=== PATIENT | female | born 1960 | race Caucasian/White ===

== ENCOUNTER 2021-04-10 01:09 | Inpatient (IN) | payer BC ==
[~2021-04-10] VITALS: Ht 162.6 cm; Wt 83.5 kg
[2021-04-10 01:34] LABS: BASO % 0 % (0-3); EOS % 0 % (0-3); HEMATOCRIT 39.9 % (36.0-47.0); HEMOGLOBIN 13.9 g/dL (12.0-15.5); LYMPH # 0.7 x10^3/uL (1.0-4.8); LYMPH % 13 % (24-48); MEAN CORPUSCULAR HEMOGLOBIN 30 pg (25-35); MEAN CORPUSCULAR HGB CONC 35 g/dL (31-37); MEAN CORPUSCULAR VOLUME 85 fL (79-100); MONO # 0.6 x10^3/uL (0.0-1.1); MONO % 11 % (0-9); NEUT # 4.5 x10^3/uL (1.8-7.7); NEUT % 76 % (31-73); PLATELET COUNT 266 x10^3/uL (140-400); RED BLOOD COUNT 4.72 x10^6/uL (3.50-5.40); RED CELL DISTRIBUTION WIDTH 13.5 % (11.5-14.5); WHITE BLOOD COUNT 5.9 x10^3/uL (4.0-11.0)
[2021-04-10 01:47] LABS: CALCIUM 8.4 mg/dL (8.5-10.1); CREATININE 0.9 mg/dL (0.6-1.0); GFR 63.2; POTASSIUM 3.5 mmol/L (3.5-5.1)
[2021-04-10 01:52] LABS: ALBUMIN 2.7 g/dL (3.4-5.0); ALBUMIN/GLOBULIN RATIO 0.6 (1.0-1.7); MAGNESIUM 2.1 mg/dL (1.8-2.4); TOTAL BILIRUBIN 1.2 mg/dL (0.2-1.0); TOTAL PROTEIN 7.1 g/dL (6.4-8.2)
--- NOTE | 2021-04-10 02:28 | RAD ---
Single view chest dated 04/10/2021 2:24 AM: COMPARISON: None Clinical Indication: Shortness of breath. Findings: Single upright portable exam of the chest was performed. Heart and mediastinal contours are within no rmal limits. There is patchy airspace disease at the peripheral aspects of the bilateral mid and lowe r lung zones. No pleural effusion. No pneumothorax. IMPRESSION: 1. Peripherally distributed airspace disease at the mid and lower lung zones, suspicious for pneumoni a. Covid 19 pneumonitis not excluded. Electronically signed by: Rosendo Palma MD (04/10/2021 2:25 AM) HEATH
--- NOTE | 2021-04-10 02:36 | PHYS DOC ---
Past Medical History Past Surgical History: Tubal ligation General Adult EDM: Chief Complaint: SHORTNESS OF BREATH HPI: HPI: Patient is a 61 year old female who was brought here by EMS from home due to trouble breathing and cough for 1 week. Patient's was tested positive for COVID-19, they live in the same house, he was not isolated. Patient denies any chest pain, no history of hypertension or diabetic. Patient said she is not a smoker. She is not on oxygen at home. EMS stated that her oxygen saturation was 87% on room air when they got to her. Patient is not vaccinated for COVID- 19 Review of Systems: Review of Systems: Constitutional: Denies fever or chills. [] Eyes: Denies change in visual acuity. [] HENT: Denies nasal congestion or sore throat. [] Respiratory: Positive for cough and shortness of breath. [] Cardiovascular: Denies chest pain or edema. [] GI: Denies abdominal pain, nausea, vomiting, bloody stools or diarrhea. [] : Denies dysuria. [] Musculoskeletal: Denies back pain or joint pain. [] Integument: Denies rash. [] Neurologic: Denies headache, focal weakness or sensory changes. [] Endocrine: Denies polyuria or polydipsia. [] Lymphatic: Denies swollen glands. [] Psychiatric: Denies depression or anxiety. [] Heart Score: C/O Chest Pain: N/A Risk Factors: Risk Factors: DM, Current or recent (<one month) smoker, HTN, HLP, family history of CAD, obesity. Risk Scores: Score 0 - 3: 2.5% MACE over next 6 weeks - Discharge Home Score 4 - 6: 20.3% MACE over next 6 weeks - Admit for Clinical Observation Score 7 - 10: 72.7% MACE over next 6 weeks - Early Invasive Strategies Current Medications: Current Medications Medications (Trade) Dose Ordered Sig/Jenna Start Time Stop Time Status Last Admin Dose Admin Dexamethasone Sodium Phosphate (Decadron) 10 mg 1X ONCE 04/10/21 02:45 04/10/21 02:46 UNV Physical Exam: PE: Constitutional: Well developed, well nourished, no acute distress, non-toxic appearance. [] HENT: Normocephalic, atraumatic, bilateral external ears normal, oropharynx moist, no oral exudates, nose normal. [] Eyes: PERRLA, EOMI, conjunctiva normal, no discharge. [] Neck: Normal range of motion, no tenderness, supple, no stridor. [] Cardiovascular:Heart rate regular rhythm, no murmur [] Lungs & Thorax: Bilateral breath sounds with crackles at lung bases, increased work of breathing. Abdomen: Bowel sounds normal, soft, no tenderness, no masses, no pulsatile masses. [] Skin: Warm, dry, no erythema, no rash. [] Back: No tenderness, no CVA tenderness. [] Extremities: No tenderness, no cyanosis, no clubbing, ROM intact, no edema. [] Neurologic: Alert and oriented X 3, normal motor function, normal sensory function, no focal deficits noted. [] Psychologic: Affect normal, judgement normal, mood normal. [] Current Patient Data: Labs: Laboratory Tests Test 04/10/21 01:19 White Blood Count 5.9 x10^3/uL (4.0-11.0) Red Blood Count 4.72 x10^6/uL (3.50-5.40) Hemoglobin 13.9 g/dL (12.0-15.5) Hematocrit 39.9 % (36.0-47.0) Mean Corpuscular Volume 85 fL (79-100) Mean Corpuscular Hemoglobin 30 pg (25-35) Mean Corpuscular Hemoglobin Concent 35 g/dL (31-37) Red Cell Distribution Width 13.5 % (11.5-14.5) Platelet Count 266 x10^3/uL (140-400) Neutrophils (%) (Auto) 76 % (31-73) H Lymphocytes (%) (Auto) 13 % (24-48) L Monocytes (%) (Auto) 11 % (0-9) H Eosinophils (%) (Auto) 0 % (0-3) Basophils (%) (Auto) 0 % (0-3) Neutrophils # (Auto) 4.5 x10^3/uL (1.8-7.7) Lymphocytes # (Auto) 0.7 x10^3/uL (1.0-4.8) L Monocytes # (Auto) 0.6 x10^3/uL (0.0-1.1) Eosinophils # (Auto) 0.0 x10^3/uL (0.0-0.7) Basophils # (Auto) 0.0 x10^3/uL (0.0-0.2) Sodium Level 137 mmol/L (136-145) Potassium Level 3.5 mmol/L (3.5-5.1) Chloride Level 99 mmol/L (98-107) Carbon Dioxide Level 30 mmol/L (21-32) Anion Gap 8 (6-14) Blood Urea Nitrogen 17 mg/dL (7-20) Creatinine 0.9 mg/dL (0.6-1.0) Estimated GFR (Cockcroft-Gault) 63.2 BUN/Creatinine Ratio 19 (6-20) Glucose Level 118 mg/dL (70-99) H Lactic Acid Level 1.6 mmol/L (0.4-2.0) Calcium Level 8.4 mg/dL (8.5-10.1) L Magnesium Level 2.1 mg/dL (1.8-2.4) Total Bilirubin 1.2 mg/dL (0.2-1.0) H Aspartate Amino Transferase (AST) 50 U/L (15-37) H Alanine Aminotransferase (ALT) 62 U/L (14-59) H Alkaline Phosphatase 80 U/L (46-116) Troponin I Quantitative < 0.017 ng/mL (0.000-0.055) JO-Paw-W-Type Natriuretic Peptide 257 pg/mL (0-124) H Total Protein 7.1 g/dL (6.4-8.2) Albumin 2.7 g/dL (3.4-5.0) L Albumin/Globulin Ratio 0.6 (1.0-1.7) L SARS-CoV-2 Antigen (Rapid) Negative (NEGATIVE) Laboratory Tests 04/10/21 01:19 Laboratory Tests 04/10/21 01:19 Vital Signs: Vital Signs Date Time Temp Pulse Resp B/P (MAP) Pulse Ox O2 Delivery O2 Flow Rate FiO2 04/10/21 01:17 74 26 138/67 (90) 92 Nasal Cannula 3.0 04/10/21 01:12 98.1 98.1 EKG: EKG: EKG was done at 132, heart rate 75 bpm, sinus rhythm, no ST segment elevation, right bundle branch block Radiology/Procedures: Radiology/Procedures: [facility] [address] [place] [address] IMAGING REPORT Signed PATIENT: ROBERT CABRAL ACCOUNT: [id number] : 1960 LOCATION: ER AGE: 61 SEX: F EXAM STATUS: REG ER ORD. PHYSICIAN: STAR SILVA DO REASON: soa PROCEDURE: CHEST AP ONLY Single view chest dated 04/10/2021 2:24 AM: COMPARISON: None Clinical Indication: Shortness of breath. Findings: Single upright portable exam of the chest was performed. Heart and mediastinal contours are within normal limits. There is patchy airspace disease at the peripheral aspects of the bilateral mid and lower lung zones. No pleural effusion. No pneumothorax. IMPRESSION: 1. Peripherally distributed airspace disease at the mid and lower lung zones, suspicious for pneumonia. Covid 19 pneumonitis not excluded. Electronically signed by: Rosendo Castro MD (04/10/2021 2:25 AM) [facility] [place] DICTATED and SIGNED BY: ROSENDO CASTRO MD DATE: 04/10/21 [id number] 0 Course & Med Decision Making: Course & Med Decision Making Pertinent Labs and Imaging studies reviewed. (See chart for details) Patient is a 61-year-old female who was brought here by EMS from home due to trouble breathing. Patient lives with her who is currently infected with COVID-19. Patient is highly to be infected with COVID-19 as well. Chest x-ray show bilateral groundglass infiltration consistent with COVID-19 infection. Her oxygen saturation is 87% on room air, patient will be admitted to hospital for further evaluation and treatment. Dragon Disclaimer: Dragon Disclaimer: This electronic medical record was generated, in whole or in part, using a voice recognition dictation system. Departure Departure Impression: Primary Impression: Pneumonia Additional Impressions: Hypoxia Person under investigation for COVID-19 Disposition: ADMITTED INPATIENT Admitting Physician: CARLITOS (Dr. Moya) Condition: STABLE Referrals: UNKNOWN PCP NAME (PCP) STAR SILVA DO Apr 10, 2021 02:36
[2021-04-10] MEDS ORDERED: DEXAMETHASONE SOD PHOS 4 MG/ML VIAL IVP ONE (02:45)
[2021-04-10] MEDS ORDERED: PIP/TAZO PER PHARMACY MC PRN (03:30)
[2021-04-10] MEDS ORDERED: PIPERACILLIN/TAZOBACTAM 3.375 GM in IV NORMAL SALINE 50ML 50 ML IV ONE (03:30)
[2021-04-10] MEDS ORDERED: ONDANSETRON PF 4 MG/2 ML VIAL. IVP PRN ×2 (03:30→06:45)
--- NOTE | 2021-04-10 04:07 | EKG ---
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
[2021-04-10] MEDS: IV NORMAL SALINE 1000ML BAG 1,000 ML IV SCH ×2 (05:14→16:50)
[2021-04-10] MEDS ORDERED: guaiFENesin/CODEINE 100mg/10mg 5 ML LIQUID PO PRN (06:15)
--- NOTE | 2021-04-10 06:19 | PDOC1 ---
History and Physical Date of Admission Date of Admission DATE: 04/10/21 TIME: 06:06 Identification/Chief Complaint Chief Complaint Shortness of breath Source Source: Patient History of Present Illness History of Present Illness Patient is a 61-year-old female with no stated past medical history presents to the ED with shortness of breath for the past week. She reports associated cough. Her is positive for COVID-19 at home, and patient states she has not been vaccinated against COVID-19. She reports associated nausea, vomiting, diarrhea, and loss of smell. Upon EMS arrival she was saturating 87% on room air. On arrival in the ED she was placed on 3 L nasal cannula with improvement in oxygen saturation. Labs on admission showed WBC 5.9, AST 50, ALT 62, BNP 257, albumin 2.7, troponin <0.017, and rapid COVID-19 was negative. Of note patient states she has 2 sons at home with similar exposure and negative rapid COVID-19 results. Chest x-ray showed peripherally distributed airspace disease at the mid and lower lung zones, suspicious for pneumonia or COVID-19 pneumonitis. She was treated with Zosyn and Decadron. Will admit patient for further medical management. Past Medical History Past Medical History Denies significant past medical history Past Surgical History Past Surgical History: Tubal Ligation Family History Family History: Diabetes Social History Smoke: No ALCOHOL: none Drugs: None Current Problem List Problem List Problems Medical Problems: (1) Hypoxia Status: Acute (2) Person under investigation for COVID-19 Status: Acute (3) Pneumonia Status: Acute Current Medications Current Medications Current Medications Dexamethasone Sodium Phosphate (Decadron) 10 mg 1X ONCE IVP Last administered on 04/10/21at 03:48; Start 04/10/21 at 02:45; Stop 04/10/21 at 03:23; Status DC Piperacillin Sod/ Tazobactam Sod 3.375 gm/Sodium Chloride 50 ml @ 100 mls/hr 1X ONCE IV Last administered on 04/10/21at 03:49; Start 04/10/21 at 03:30; Stop 04/10/21 at 03:59; Status DC Ondansetron HCl (Zofran) 4 mg PRN Q8HRS PRN IVP NAUSEA/VOMITING; Start 04/10/21 at 03:30; Stop 04/11/21 at 03:29 Sodium Chloride 1,000 ml @ 75 mls/hr [id number] IV Last administered on 04/10/21at 05:14; Start 04/10/21 at 03:30; Stop 04/11/21 at 03:29 Piperacillin Sod/ Tazobactam Sod (Zosyn Per Pharmacy) 1 each PRN DAILY PRN MC SEE COMMENTS; Start 04/10/21 at 03:30 Piperacillin Sod/ Tazobactam Sod 3.375 gm/Sodium Chloride 50 ml @ 100 mls/hr Q6HRS IV ; Start 04/10/21 at 12:00 Allergies Allergies: Coded Allergies: No Known Drug Allergies (Unverified , 04/10/21) ROS Review of System GENERAL: No history of weight change, weakness or fevers. SKIN: No bruising, hair changes or rashes. EYES: No blurred, double or loss of vision. NOSE AND THROAT: No history of nosebleeds, hoarseness or sore throat. HEART: Denies chest pain, denies palpitations. LUNGS: Shortness of breath, cough. Denies hemoptysis or wheezing. GASTROINTESTINAL: Nausea, vomiting, diarrhea, lower abdominal pain. GENITOURINARY: Denies dysuria, frequency, urgency, hematuria. NEUROLOGIC: Denies history of numbness, tingling, tremor or weakness. PSYCHIATRIC: Denies anxiety, denies depression. ENDOCRINE: No history of heat or cold intolerance, polyuria or polydipsia. EXTREMITIES: Denies muscle weakness, joint pain, pain on walking or stiffness. Physical Exam Physical Exam General: Alert, Oriented X3, Cooperative, mild distress HEENT: PERRLA, EOMI Lungs: No increased work of breathing, Normal air movement Heart: RRR, no murmurs Cardiovascular: S1, S2 Abdomen: Normal bowel sounds, Soft, No tenderness Extremities: No clubbing, No cyanosis Skin: No rashes, No significant lesion Neuro: Normal speech, Normal tone, Sensation intact Psych/Mental Status: Mental status NL, Mood NL Vitals Vitals Vital Signs Date Time Temp Pulse Resp B/P (MAP) Pulse Ox O2 Delivery O2 Flow Rate FiO2 04/10/21 04:00 70 27 131/66 (87) 98 Nasal Cannula 3.0 04/10/21 01:12 98.1 98.1 Labs Labs Laboratory Tests Test 10/3/21 01:19 White Blood Count 5.9 x10^3/uL (4.0-11.0) Red Blood Count 4.72 x10^6/uL (3.50-5.40) Hemoglobin 13.9 g/dL (12.0-15.5) Hematocrit 39.9 % (36.0-47.0) Mean Corpuscular Volume 85 fL (79-100) Mean Corpuscular Hemoglobin 30 pg (25-35) Mean Corpuscular Hemoglobin Concent 35 g/dL (31-37) Red Cell Distribution Width 13.5 % (11.5-14.5) Platelet Count 266 x10^3/uL (140-400) Neutrophils (%) (Auto) 76 % (31-73) Lymphocytes (%) (Auto) 13 % (24-48) Monocytes (%) (Auto) 11 % (0-9) Eosinophils (%) (Auto) 0 % (0-3) Basophils (%) (Auto) 0 % (0-3) Neutrophils # (Auto) 4.5 x10^3/uL (1.8-7.7) Lymphocytes # (Auto) 0.7 x10^3/uL (1.0-4.8) Monocytes # (Auto) 0.6 x10^3/uL (0.0-1.1) Eosinophils # (Auto) 0.0 x10^3/uL (0.0-0.7) Basophils # (Auto) 0.0 x10^3/uL (0.0-0.2) Sodium Level 137 mmol/L (136-145) Potassium Level 3.5 mmol/L (3.5-5.1) Chloride Level 99 mmol/L (98-107) Carbon Dioxide Level 30 mmol/L (21-32) Anion Gap 8 (6-14) Blood Urea Nitrogen 17 mg/dL (7-20) Creatinine 0.9 mg/dL (0.6-1.0) Estimated GFR (Cockcroft-Gault) 63.2 BUN/Creatinine Ratio 19 (6-20) Glucose Level 118 mg/dL (70-99) Lactic Acid Level 1.6 mmol/L (0.4-2.0) Calcium Level 8.4 mg/dL (8.5-10.1) Magnesium Level 2.1 mg/dL (1.8-2.4) Total Bilirubin 1.2 mg/dL (0.2-1.0) Aspartate Amino Transf (AST/SGOT) 50 U/L (15-37) Alanine Aminotransferase (ALT/SGPT) 62 U/L (14-59) Alkaline Phosphatase 80 U/L (46-116) Troponin I Quantitative < 0.017 ng/mL (0.000-0.055) WU-Wha-C-Type Natriuretic Peptide 257 pg/mL (0-124) Total Protein 7.1 g/dL (6.4-8.2) Albumin 2.7 g/dL (3.4-5.0) Albumin/Globulin Ratio 0.6 (1.0-1.7) SARS-CoV-2 Antigen (Rapid) Negative (NEGATIVE) Laboratory Tests Test 04/10/21 01:19 White Blood Count 5.9 x10^3/uL (4.0-11.0) Red Blood Count 4.72 x10^6/uL (3.50-5.40) Hemoglobin 13.9 g/dL (12.0-15.5) Hematocrit 39.9 % (36.0-47.0) Mean Corpuscular Volume 85 fL (79-100) Mean Corpuscular Hemoglobin 30 pg (25-35) Mean Corpuscular Hemoglobin Concent 35 g/dL (31-37) Red Cell Distribution Width 13.5 % (11.5-14.5) Platelet Count 266 x10^3/uL (140-400) Neutrophils (%) (Auto) 76 % (31-73) Lymphocytes (%) (Auto) 13 % (24-48) Monocytes (%) (Auto) 11 % (0-9) Eosinophils (%) (Auto) 0 % (0-3) Basophils (%) (Auto) 0 % (0-3) Neutrophils # (Auto) 4.5 x10^3/uL (1.8-7.7) Lymphocytes # (Auto) 0.7 x10^3/uL (1.0-4.8) Monocytes # (Auto) 0.6 x10^3/uL (0.0-1.1) Eosinophils # (Auto) 0.0 x10^3/uL (0.0-0.7) Basophils # (Auto) 0.0 x10^3/uL (0.0-0.2) Sodium Level 137 mmol/L (136-145) Potassium Level 3.5 mmol/L (3.5-5.1) Chloride Level 99 mmol/L (98-107) Carbon Dioxide Level 30 mmol/L (21-32) Anion Gap 8 (6-14) Blood Urea Nitrogen 17 mg/dL (7-20) Creatinine 0.9 mg/dL (0.6-1.0) Estimated GFR (Cockcroft-Gault) 63.2 BUN/Creatinine Ratio 19 (6-20) Glucose Level 118 mg/dL (70-99) Lactic Acid Level 1.6 mmol/L (0.4-2.0) Calcium Level 8.4 mg/dL (8.5-10.1) Magnesium Level 2.1 mg/dL (1.8-2.4) Total Bilirubin 1.2 mg/dL (0.2-1.0) Aspartate Amino Transf (AST/SGOT) 50 U/L (15-37) Alanine Aminotransferase (ALT/SGPT) 62 U/L (14-59) Alkaline Phosphatase 80 U/L (46-116) Troponin I Quantitative < 0.017 ng/mL (0.000-0.055) ID-Izv-S-Type Natriuretic Peptide 257 pg/mL (0-124) Total Protein 7.1 g/dL (6.4-8.2) Albumin 2.7 g/dL (3.4-5.0) Albumin/Globulin Ratio 0.6 (1.0-1.7) SARS-CoV-2 Antigen (Rapid) Negative (NEGATIVE) Images Images PATIENT: ROBERT CABRAL ACCOUNT: [id number] : 1960 LOCATION: ER AGE: 61 SEX: F EXAM STATUS: REG ER ORD. PHYSICIAN: STAR SILVA DO REASON: soa PROCEDURE: CHEST AP ONLY Single view chest dated 04/10/2021 2:24 AM: COMPARISON: None Clinical Indication: Shortness of breath. Findings: Single upright portable exam of the chest was performed. Heart and mediastinal contours are within normal limits. There is patchy airspace disease at the peripheral aspects of the bilateral mid and lower lung zones. No pleural effusion. No pneumothorax. IMPRESSION: 1. Peripherally distributed airspace disease at the mid and lower lung zones, suspicious for pneumonia. Covid 19 pneumonitis not excluded. VTE Prophylaxis Ordered VTE Prophylaxis Devices: No VTE Pharmacological Prophylaxi: Yes Assessment/Plan Assessment/Plan Acute respiratory failure hypoxia COVID-19 pneumonia vs CAP COVID-19 PUI Plan: Rapid COVID-19 was negative in the ED, however due to risk factors of positive exposure at home will treat empirically until COVID-19 PCR results. Continue empiric antibiotics, Zosyn. Decadron 6 mg daily Once COVID-19 PCR result positive, will initiate remdesivir. We will obtain CRP, LDH, ferritin, D-dimer. Provide supportive care, zinc, vitamin C. FEN - Cardiac diet PPX - Lovenox FULL CODE Dispo - inpatient for above Patient names her (Andi Cabral) as surrogate decision-maker Justifications for Admission Other Justification LOI GARZA MD Apr 10, 2021 06:18
[2021-04-10] MEDS ORDERED: CALCIUM CARBONATE 500 MG TAB.CHEW PO PRN (06:45)
[2021-04-10] MEDS ORDERED: MAGNESIUM HYDROXIDE 2,400 MG/30 ML ORAL.SUSP. PO PRN (06:45)
[2021-04-10] MEDS ORDERED: ZOLPIDEM 5 MG TABLET. PO PRN (06:45)
[2021-04-10] MEDS ORDERED: ACETAMINOPHEN 325 MG TABLET. PO PRN (06:45)
[2021-04-10] MEDS ORDERED: MAG HYDROX/ALUMINUM HYD/SIMETH 30 ML ORAL.SUSP PO PRN (06:45)
[2021-04-10 07:00] VITALS: BP 126/67
[2021-04-10 09:14] LABS: C-REACTIVE PROTEIN 84.7 mg/L (0-3.3)
[2021-04-10] MEDS: LACTOBACILLUS RHAMNOSUS GG 1 CAPSULE. PO SCH ×2 (10:01→21:01)
[2021-04-10] MEDS: ZINC SULFATE 220 MG CAPSULE. PO SCH (10:02)
[2021-04-10] MEDS: ENOXAPARIN 40 MG/0.4 ML SYRINGE. SQ SCH (10:02)
[2021-04-10] MEDS: ASCORBIC ACID 500 MG TABLET PO SCH ×2 (10:02→21:00)
[2021-04-10 11:00] VITALS: BP 144/70
[2021-04-10] MEDS: PIPERACILLIN/TAZOBACTAM 3.375 GM in IV NORMAL SALINE 50ML 50 ML IV SCH ×3 (13:19→23:01)
[2021-04-10 15:00] VITALS: BP 134/60
[2021-04-10 19:00] VITALS: BP 140/74
[2021-04-10] MEDS: HYDROcodone/APAP 5/325MG 1 TAB TABLET PO PRN (21:00)
[2021-04-10 22:55] VITALS: BP 143/72
[2021-04-11 02:21] VITALS: BP 135/72
[2021-04-11 03:08] LABS: HEMOGLOBIN A1C 6.1 % (4.8-5.6)
[2021-04-11] MEDS: PIPERACILLIN/TAZOBACTAM 3.375 GM in IV NORMAL SALINE 50ML 50 ML IV SCH (04:52)
[2021-04-11 07:00] VITALS: BP 151/77
[2021-04-11 08:36] LABS: ALBUMIN 2.4 g/dL (3.4-5.0); CALCIUM 8.4 mg/dL (8.5-10.1); CREATININE 0.9 mg/dL (0.6-1.0); DIRECT BILIRUBIN 0.4 mg/dL (0.0-0.2); GFR 63.2; POTASSIUM 3.9 mmol/L (3.5-5.1); TOTAL PROTEIN 6.5 g/dL (6.4-8.2)
[2021-04-11 08:53] LABS: BASO % 0 % (0-3); EOS % 0 % (0-3); HEMATOCRIT 37.5 % (36.0-47.0); HEMOGLOBIN 12.7 g/dL (12.0-15.5); LYMPH # 1.3 x10^3/uL (1.0-4.8); LYMPH % 18 % (24-48); MEAN CORPUSCULAR HEMOGLOBIN 29 pg (25-35); MEAN CORPUSCULAR HGB CONC 34 g/dL (31-37); MEAN CORPUSCULAR VOLUME 87 fL (79-100); MONO # 1.2 x10^3/uL (0.0-1.1); MONO % 17 % (0-9); NEUT # 4.5 x10^3/uL (1.8-7.7); NEUT % 64 % (31-73); PLATELET COUNT 318 x10^3/uL (140-400); RED BLOOD COUNT 4.32 x10^6/uL (3.50-5.40); RED CELL DISTRIBUTION WIDTH 13.6 % (11.5-14.5); WHITE BLOOD COUNT 7.1 x10^3/uL (4.0-11.0)
--- NOTE | 2021-04-11 09:15 | PDOC ---
PULMONARY PROGRESS NOTES DATE: 04/11/21 TIME: 09:15 Vitals Vital Signs Date Time Temp Pulse Resp B/P (MAP) Pulse Ox O2 Delivery O2 Flow Rate FiO2 04/11/21 07:00 98.0 61 20 151/77 (101) 96 Nasal Cannula 3.0 98.0 Labs Laboratory Tests Test 04/10/21 01:19 04/10/21 08:20 04/11/21 07:45 White Blood Count 5.9 x10^3/uL (4.0-11.0) 7.1 x10^3/uL (4.0-11.0) Red Blood Count 4.72 x10^6/uL (3.50-5.40) 4.32 x10^6/uL (3.50-5.40) Hemoglobin 13.9 g/dL (12.0-15.5) 12.7 g/dL (12.0-15.5) Hematocrit 39.9 % (36.0-47.0) 37.5 % (36.0-47.0) Mean Corpuscular Volume 85 fL (79-100) 87 fL (79-100) Mean Corpuscular Hemoglobin 30 pg (25-35) 29 pg (25-35) Mean Corpuscular Hemoglobin Concent 35 g/dL (31-37) 34 g/dL (31-37) Red Cell Distribution Width 13.5 % (11.5-14.5) 13.6 % (11.5-14.5) Platelet Count 266 x10^3/uL (140-400) 318 x10^3/uL (140-400) Neutrophils (%) (Auto) 76 % (31-73) 64 % (31-73) Lymphocytes (%) (Auto) 13 % (24-48) 18 % (24-48) Monocytes (%) (Auto) 11 % (0-9) 17 % (0-9) Eosinophils (%) (Auto) 0 % (0-3) 0 % (0-3) Basophils (%) (Auto) 0 % (0-3) 0 % (0-3) Neutrophils # (Auto) 4.5 x10^3/uL (1.8-7.7) 4.5 x10^3/uL (1.8-7.7) Lymphocytes # (Auto) 0.7 x10^3/uL (1.0-4.8) 1.3 x10^3/uL (1.0-4.8) Monocytes # (Auto) 0.6 x10^3/uL (0.0-1.1) 1.2 x10^3/uL (0.0-1.1) Eosinophils # (Auto) 0.0 x10^3/uL (0.0-0.7) 0.0 x10^3/uL (0.0-0.7) Basophils # (Auto) 0.0 x10^3/uL (0.0-0.2) 0.0 x10^3/uL (0.0-0.2) Sodium Level 137 mmol/L (136-145) 141 mmol/L (136-145) Potassium Level 3.5 mmol/L (3.5-5.1) 3.9 mmol/L (3.5-5.1) Chloride Level 99 mmol/L (98-107) 105 mmol/L (98-107) Carbon Dioxide Level 30 mmol/L (21-32) 28 mmol/L (21-32) Anion Gap 8 (6-14) 8 (6-14) Blood Urea Nitrogen 17 mg/dL (7-20) 15 mg/dL (7-20) Creatinine 0.9 mg/dL (0.6-1.0) 0.9 mg/dL (0.6-1.0) Estimated GFR (Cockcroft-Gault) 63.2 63.2 BUN/Creatinine Ratio 19 (6-20) Glucose Level 118 mg/dL (70-99) 91 mg/dL (70-99) Hemoglobin A1c 6.1 % (4.8-5.6) Lactic Acid Level 1.6 mmol/L (0.4-2.0) Calcium Level 8.4 mg/dL (8.5-10.1) 8.4 mg/dL (8.5-10.1) Magnesium Level 2.1 mg/dL (1.8-2.4) Ferritin 2189 ng/mL (8-252) Total Bilirubin 1.2 mg/dL (0.2-1.0) 1.0 mg/dL (0.2-1.0) Aspartate Amino Transf (AST/SGOT) 50 U/L (15-37) 53 U/L (15-37) Alanine Aminotransferase (ALT/SGPT) 62 U/L (14-59) 57 U/L (14-59) Alkaline Phosphatase 80 U/L (46-116) 69 U/L (46-116) Lactate Dehydrogenase 434 U/L (81-234) Troponin I Quantitative < 0.017 ng/mL (0.000-0.055) C-Reactive Protein, Quantitative 84.7 mg/L (0-3.3) MB-Ztj-V-Type Natriuretic Peptide 257 pg/mL (0-124) Total Protein 7.1 g/dL (6.4-8.2) 6.5 g/dL (6.4-8.2) Albumin 2.7 g/dL (3.4-5.0) 2.4 g/dL (3.4-5.0) Albumin/Globulin Ratio 0.6 (1.0-1.7) SARS-CoV-2 Antigen (Rapid) Negative (NEGATIVE) D-Dimer (Izabel) 1.45 ug/mlFEU (0.00-0.50) Direct Bilirubin 0.4 mg/dL (0.0-0.2) Laboratory Tests Test 04/11/21 07:45 White Blood Count 7.1 x10^3/uL (4.0-11.0) Red Blood Count 4.32 x10^6/uL (3.50-5.40) Hemoglobin 12.7 g/dL (12.0-15.5) Hematocrit 37.5 % (36.0-47.0) Mean Corpuscular Volume 87 fL (79-100) Mean Corpuscular Hemoglobin 29 pg (25-35) Mean Corpuscular Hemoglobin Concent 34 g/dL (31-37) Red Cell Distribution Width 13.6 % (11.5-14.5) Platelet Count 318 x10^3/uL (140-400) Neutrophils (%) (Auto) 64 % (31-73) Lymphocytes (%) (Auto) 18 % (24-48) Monocytes (%) (Auto) 17 % (0-9) Eosinophils (%) (Auto) 0 % (0-3) Basophils (%) (Auto) 0 % (0-3) Neutrophils # (Auto) 4.5 x10^3/uL (1.8-7.7) Lymphocytes # (Auto) 1.3 x10^3/uL (1.0-4.8) Monocytes # (Auto) 1.2 x10^3/uL (0.0-1.1) Eosinophils # (Auto) 0.0 x10^3/uL (0.0-0.7) Basophils # (Auto) 0.0 x10^3/uL (0.0-0.2) Sodium Level 141 mmol/L (136-145) Potassium Level 3.9 mmol/L (3.5-5.1) Chloride Level 105 mmol/L (98-107) Carbon Dioxide Level 28 mmol/L (21-32) Anion Gap 8 (6-14) Blood Urea Nitrogen 15 mg/dL (7-20) Creatinine 0.9 mg/dL (0.6-1.0) Estimated GFR (Cockcroft-Gault) 63.2 Glucose Level 91 mg/dL (70-99) Calcium Level 8.4 mg/dL (8.5-10.1) Total Bilirubin 1.0 mg/dL (0.2-1.0) Direct Bilirubin 0.4 mg/dL (0.0-0.2) Aspartate Amino Transf (AST/SGOT) 53 U/L (15-37) Alanine Aminotransferase (ALT/SGPT) 57 U/L (14-59) Alkaline Phosphatase 69 U/L (46-116) Total Protein 6.5 g/dL (6.4-8.2) Albumin 2.4 g/dL (3.4-5.0) Medications Active Scripts Medications Dose Route/Sig Max Daily Dose Days Date Category No Known Medications Prior To Admisstion (Info) Each 1 Each 1X 04/10/21 Reported Impression . POSSIBLE COVID REPEAT TEST PCR SEE ORDERS RULE OUT LIYA GUALLPA MD Apr 11, 2021 09:15
[2021-04-11] MEDS: LACTOBACILLUS RHAMNOSUS GG 1 CAPSULE. PO SCH ×2 (09:46→20:30)
[2021-04-11] MEDS: ZINC SULFATE 220 MG CAPSULE. PO SCH (09:46)
[2021-04-11] MEDS: ASCORBIC ACID 500 MG TABLET PO SCH ×2 (09:46→20:30)
[2021-04-11] MEDS: DEXAMETHASONE SOD PHOS 4 MG/ML VIAL IVP SCH (09:46)
[2021-04-11] MEDS: ENOXAPARIN 40 MG/0.4 ML SYRINGE. SQ SCH (09:47)
[2021-04-11 11:00] VITALS: BP 143/77
[2021-04-11] MEDS ORDERED: IOHEXOL 350 MG/ML 100 ML VIAL. IV ONE (12:15)
[2021-04-11] MEDS ORDERED: CONTRAST GIVEN. MC PRN (12:30)
--- NOTE | 2021-04-11 12:30 | CONS ---
DATE OF CONSULTATION: 04/11/2021 ATTENDING PHYSICIAN: Mode Milligan MD REASON FOR CONSULTATION: The patient is seen in pulmonary consultation at the request of Dr. Milligan for possible COVID, abnormal x-ray. HISTORY OF PRESENT ILLNESS: The patient is a 61-year-old that was brought in by EMS from home due to trouble breathing. She has been sick at home for approximately 1 week. Her tested positive. He was not isolating himself from the . The patient presented, had saturations on room air of 87%. Chest x-ray reveals some airspace disease in the right mid and lower zones. I was asked to see her in consultation. The patient is currently on 3 liters of oxygen. She has never had any pulmonary issues. PAST MEDICAL HISTORY: Otherwise unremarkable. PAST SURGICAL HISTORY: Tubal ligation. FAMILY HISTORY: Diabetes. SOCIAL HISTORY: She has never smoked. CURRENT MEDICATIONS: List was reviewed. ALLERGIES: No known drug allergies. REVIEW OF SYSTEMS: As indicated above, otherwise a 10-point system was reviewed and negative. PHYSICAL EXAMINATION: VITAL SIGNS: Stable. O2 saturation was greater than 92%. GENERAL: The patient is seen during the COVID-19 pandemic on visual inspection, she was in no respiratory distress. No paroxysmal breathing pattern. No accessory muscles being used. There are no rashes. LABORATORY DATA: Reviewed. White count was normal, hemoglobin and hematocrit were noted. [id number] BEATRICE was negative. The rapid test was negative. Electrolytes were noted. D-dimer was elevated at 1.45. IMPRESSION: 1. Abnormal x-ray, compatible with suspected COVID-19. 2. COVID-19 exposure. 3. Acute respiratory failure secondary to above. 4. Abnormal x-ray. 5. Negative testing for TUPV-OWVNA-0 including rapid test and nucleic amplification test. PLAN: 1. We will continue empiric antibiotics. 2. Obtain PCR for COVID. 3. Continue isolation. 4. Oxygen supplementation. 5. Continue dexamethasone. 6. DVT prophylaxis. 7. Rule out PE. I do appreciate the privilege in sharing in this patient's care. BARRON LYMAN: Liu TID: [id number]
--- NOTE | 2021-04-11 13:44 | PDOC ---
[employer] PROGRESS NOTE Date of Service DOS: DATE: 04/11/21 TIME: 13:43 Chief Complaint Chief Complaint Shortness of breath History of Present Illness History of Present Illness Patient is a 61-year-old female with no stated past medical history presents to the ED with shortness of breath for the past week. She reports associated cough. Her is positive for COVID-19 at home, and patient states she has not been vaccinated against COVID-19. She reports associated nausea, vomiting, diarrhea, and loss of smell. Upon EMS arrival she was saturating 87% on room air. On arrival in the ED she was placed on 3 L nasal cannula with improvement in oxygen saturation. Labs on admission showed WBC 5.9, AST 50, ALT 62, BNP 257, albumin 2.7, troponin <0.017, and rapid COVID-19 was negative. Of note patient states she has 2 sons at home with similar exposure and negative rapid COVID-19 results. Chest x-ray showed peripherally distributed airspace disease at the mid and lower lung zones, suspicious for pneumonia or COVID-19 pneu monitis. She was treated with Zosyn and Decadron. Will admit patient for further medical management. 04/11 Patient evaluated at bedside on nasal cannula. She said her breathing was feeling quite a bit better already although not near her baseline. Inte restingly Covid PCR negative despite close contact with PCR positive . Will ask pulmonary team the benefit of retesting. Otherwise continuing antibiotics and steroids. Plan of care discussed with bedside RN. Vitals/I&O Vitals/I&O: Vital Signs Date Time Temp Pulse Resp B/P (MAP) Pulse Ox O2 Delivery O2 Flow Rate FiO2 04/11/21 11:00 98.2 58 20 143/77 (99) 93 Nasal Cannula 3.0 98.2 I & O 04/10/21 04/10/21 04/11/21 15:00 23:00 07:00 Intake Total 680 ml 400 ml 120 ml Balance 680 ml 400 ml 120 ml Physical Exam General: Alert, Oriented X3, Cooperative Heart: Regular rate, Normal S1, Normal S2 Lungs: Other (Decreased throughout) Abdomen: Normal bowel sounds, Soft, No tenderness Extremities: No edema, Normal pulses Skin: No significant lesion Labs Labs: Laboratory Tests Test 04/11/21 07:45 White Blood Count 7.1 x10^3/uL (4.0-11.0) Red Blood Count 4.32 x10^6/uL (3.50-5.40) Hemoglobin 12.7 g/dL (12.0-15.5) Hematocrit 37.5 % (36.0-47.0) Mean Corpuscular Volume 87 fL (79-100) Mean Corpuscular Hemoglobin 29 pg (25-35) Mean Corpuscular Hemoglobin Concent 34 g/dL (31-37) Red Cell Distribution Width 13.6 % (11.5-14.5) Platelet Count 318 x10^3/uL (140-400) Neutrophils (%) (Auto) 64 % (31-73) Lymphocytes (%) (Auto) 18 % (24-48) Monocytes (%) (Auto) 17 % (0-9) Eosinophils (%) (Auto) 0 % (0-3) Basophils (%) (Auto) 0 % (0-3) Neutrophils # (Auto) 4.5 x10^3/uL (1.8-7.7) Lymphocytes # (Auto) 1.3 x10^3/uL (1.0-4.8) Monocytes # (Auto) 1.2 x10^3/uL (0.0-1.1) Eosinophils # (Auto) 0.0 x10^3/uL (0.0-0.7) Basophils # (Auto) 0.0 x10^3/uL (0.0-0.2) Sodium Level 141 mmol/L (136-145) Potassium Level 3.9 mmol/L (3.5-5.1) Chloride Level 105 mmol/L (98-107) Carbon Dioxide Level 28 mmol/L (21-32) Anion Gap 8 (6-14) Blood Urea Nitrogen 15 mg/dL (7-20) Creatinine 0.9 mg/dL (0.6-1.0) Estimated GFR (Cockcroft-Gault) 63.2 Glucose Level 91 mg/dL (70-99) Calcium Level 8.4 mg/dL (8.5-10.1) Total Bilirubin 1.0 mg/dL (0.2-1.0) Direct Bilirubin 0.4 mg/dL (0.0-0.2) Aspartate Amino Transf (AST/SGOT) 53 U/L (15-37) Alanine Aminotransferase (ALT/SGPT) 57 U/L (14-59) Alkaline Phosphatase 69 U/L (46-116) Total Protein 6.5 g/dL (6.4-8.2) Albumin 2.4 g/dL (3.4-5.0) Review of Systems Review of Systems: Negative unless above Assessment and Plan Assessmemt and Plan Assessment/Plan Acute respiratory failure hypoxia COVID-19 pneumonia vs CAP COVID-19 PUI Plan: Rapid COVID-19 was negative in the ED, however due to risk factors of positive exposure at home will treat empirically until COVID-19 PCR results; Covid PCR subsequently negative but due to high risk and close Covid contacts we will re peat Continue empiric antibiotics, Zosyn. Decadron 6 mg daily If Covid positive start remdesivir Provide supportive [facility] meds resumed as indicated FEN - Cardiac diet PPX - Lovenox FULL CODE Dispo - inpatient for above Patient names her (Andi Miller) as surrogate decision-make Comment Review of Relevant I have reviewed the following items shandra (where applicable) has been applied. Medications: Current Medications Medications (Trade) Dose Ordered Sig/Jenna Route PRN Reason Start Time Stop Time Status Last Admin Dose Admin Dexamethasone Sodium Phosphate (Decadron) 6 mg DAILY IVP 04/11/21 09:00 04/11/21 09:46 Justifications for Admission General Conditions Other justification for admit: Acute respiratory failure, COVID-19 PUI Other Justification PRATIMA MOON MD Apr 11, 2021 13:44
--- NOTE | 2021-04-11 13:47 | RAD ---
EXAMINATION: CTA Chest With IV contrast INDICATION:61 years, Female, shortness of breath. COMPARISON: None. TECHNIQUE: Spiral CTA was obtained from the jugular notch through the posterior costophrenic recess. 3-D MIPS, sagittal and coronal reformats were obtained. Exposure: One or more of the following individualized dose reduction techniques were utilized for thi s examination: 1. Automated exposure control 2. Adjustment of the mA and/or kV according to patient size 3. Use of iterative reconstruction technique. FINDINGS: LUNGS/PLEURA: Central airways are patent. Multifocal bilateral consolidative and groundglass opacitie s. No pleural effusion or pneumothorax. No suspicious pulmonary nodule.. MEDIASTINUM: Multiple prominent to mildly enlarged mediastinal and hilar lymph nodes, the largest in the right paratracheal region measures 1.4 cm in short axis, likely reactive. The thoracic aorta and pulmonary arteries are normal in caliber. No evidence of pulmonary embolism. The heart is normal in s ize. No pericardial effusion. No detectable calcified coronary atherosclerosis. The visualized thyroi d and the esophagus are unremarkable. AXILLA/SOFT TISSUE: No supraclavicular or axillary adenopathy. Regional soft tissues are within tram l limits. UPPER ABDOMEN: Small hiatal hernia. Hepatic steatosis. Possible calcified cholelithiasis seen. Indete rminate 1.5 cm left adrenal nodule. BONES: No evidence of acute fractures or aggressive osseous lesions. Mild multilevel degenerative kari nges in the spine. IMPRESSION: 1. No evidence of pulmonary embolism. 2. Multifocal bilateral consolidative and groundglass opacities, highly suspicious for COVID 19 pneum onia. 3. Indeterminate 1.5 cm left adrenal nodule. With no personal history of primary malignancy, findings statistically representing benign adenoma. Consider further evaluation with dedicated CT adrenal pro tocol, as warranted. 4. Hepatic steatosis. Electronically signed by: Chrissie Arciniega MD (04/11/2021 1:44 PM) [facility]
[2021-04-11] MEDS: DOXYCYCLINE HYCLATE 100 MG TABLET PO SCH ×2 (14:44→20:30)
[2021-04-11 15:00] VITALS: BP 150/77
[2021-04-11 19:00] VITALS: BP 145/71
[2021-04-11] MEDS: HYDROcodone/APAP 5/325MG 1 TAB TABLET PO PRN (20:30)
[2021-04-11 22:45] VITALS: BP 142/69
[2021-04-12 02:42] VITALS: BP 148/72
[2021-04-12 07:00] VITALS: BP 152/72
[2021-04-12 07:12] LABS: BASO % 0 % (0-3); EOS # 0.1 x10^3/uL (0.0-0.7); EOS % 1 % (0-3); HEMATOCRIT 37.5 % (36.0-47.0); HEMOGLOBIN 12.9 g/dL (12.0-15.5); LYMPH # 1.9 x10^3/uL (1.0-4.8); LYMPH % 24 % (24-48); MEAN CORPUSCULAR HEMOGLOBIN 30 pg (25-35); MEAN CORPUSCULAR HGB CONC 34 g/dL (31-37); MEAN CORPUSCULAR VOLUME 86 fL (79-100); MONO # 1.2 x10^3/uL (0.0-1.1); MONO % 16 % (0-9); NEUT # 4.6 x10^3/uL (1.8-7.7); NEUT % 59 % (31-73); PLATELET COUNT 358 x10^3/uL (140-400); RED BLOOD COUNT 4.37 x10^6/uL (3.50-5.40); RED CELL DISTRIBUTION WIDTH 13.7 % (11.5-14.5); WHITE BLOOD COUNT 7.7 x10^3/uL (4.0-11.0)
[2021-04-12] MEDS: ZINC SULFATE 220 MG CAPSULE. PO SCH (08:35)
[2021-04-12] MEDS: ENOXAPARIN 40 MG/0.4 ML SYRINGE. SQ SCH (08:36)
[2021-04-12] MEDS: DOXYCYCLINE HYCLATE 100 MG TABLET PO SCH ×2 (08:36→20:34)
[2021-04-12] MEDS: LACTOBACILLUS RHAMNOSUS GG 1 CAPSULE. PO SCH ×2 (08:36→20:34)
[2021-04-12] MEDS: ASCORBIC ACID 500 MG TABLET PO SCH ×2 (08:36→20:34)
[2021-04-12] MEDS: DEXAMETHASONE SOD PHOS 4 MG/ML VIAL IVP SCH (08:37)
--- NOTE | 2021-04-12 08:49 | PDOC ---
PULMONARY PROGRESS NOTES DATE: 04/12/21 TIME: 08:49 Subjective Patient does not feel worse, currently on 3 L. Vitals Vital Signs Date Time Temp Pulse Resp B/P (MAP) Pulse Ox O2 Delivery O2 Flow Rate FiO2 04/12/21 07:00 97.6 53 18 152/72 (98) 92 Nasal Cannula 3.0 97.6 ROS: No Nausea, No Chest Pain, No Abdominal Pain, No Increase Cough General: Alert Lungs: Crackles Cardiovascular: S1, S2 Abdomen: Soft Neuro Exam: Alert Extremities: No Edema Skin: Warm Labs Laboratory Tests Test 04/11/21 07:45 04/12/21 06:30 White Blood Count 7.1 x10^3/uL (4.0-11.0) 7.7 x10^3/uL (4.0-11.0) Red Blood Count 4.32 x10^6/uL (3.50-5.40) 4.37 x10^6/uL (3.50-5.40) Hemoglobin 12.7 g/dL (12.0-15.5) 12.9 g/dL (12.0-15.5) Hematocrit 37.5 % (36.0-47.0) 37.5 % (36.0-47.0) Mean Corpuscular Volume 87 fL (79-100) 86 fL (79-100) Mean Corpuscular Hemoglobin 29 pg (25-35) 30 pg (25-35) Mean Corpuscular Hemoglobin Concent 34 g/dL (31-37) 34 g/dL (31-37) Red Cell Distribution Width 13.6 % (11.5-14.5) 13.7 % (11.5-14.5) Platelet Count 318 x10^3/uL (140-400) 358 x10^3/uL (140-400) Neutrophils (%) (Auto) 64 % (31-73) 59 % (31-73) Lymphocytes (%) (Auto) 18 % (24-48) 24 % (24-48) Monocytes (%) (Auto) 17 % (0-9) 16 % (0-9) Eosinophils (%) (Auto) 0 % (0-3) 1 % (0-3) Basophils (%) (Auto) 0 % (0-3) 0 % (0-3) Neutrophils # (Auto) 4.5 x10^3/uL (1.8-7.7) 4.6 x10^3/uL (1.8-7.7) Lymphocytes # (Auto) 1.3 x10^3/uL (1.0-4.8) 1.9 x10^3/uL (1.0-4.8) Monocytes # (Auto) 1.2 x10^3/uL (0.0-1.1) 1.2 x10^3/uL (0.0-1.1) Eosinophils # (Auto) 0.0 x10^3/uL (0.0-0.7) 0.1 x10^3/uL (0.0-0.7) Basophils # (Auto) 0.0 x10^3/uL (0.0-0.2) 0.0 x10^3/uL (0.0-0.2) Sodium Level 141 mmol/L (136-145) Potassium Level 3.9 mmol/L (3.5-5.1) Chloride Level 105 mmol/L (98-107) Carbon Dioxide Level 28 mmol/L (21-32) Anion Gap 8 (6-14) Blood Urea Nitrogen 15 mg/dL (7-20) Creatinine 0.9 mg/dL (0.6-1.0) Estimated GFR (Cockcroft-Gault) 63.2 Glucose Level 91 mg/dL (70-99) Calcium Level 8.4 mg/dL (8.5-10.1) Total Bilirubin 1.0 mg/dL (0.2-1.0) Direct Bilirubin 0.4 mg/dL (0.0-0.2) Aspartate Amino Transf (AST/SGOT) 53 U/L (15-37) Alanine Aminotransferase (ALT/SGPT) 57 U/L (14-59) Alkaline Phosphatase 69 U/L (46-116) Total Protein 6.5 g/dL (6.4-8.2) Albumin 2.4 g/dL (3.4-5.0) Laboratory Tests Test 04/12/21 06:30 White Blood Count 7.7 x10^3/uL (4.0-11.0) Red Blood Count 4.37 x10^6/uL (3.50-5.40) Hemoglobin 12.9 g/dL (12.0-15.5) Hematocrit 37.5 % (36.0-47.0) Mean Corpuscular Volume 86 fL (79-100) Mean Corpuscular Hemoglobin 30 pg (25-35) Mean Corpuscular Hemoglobin Concent 34 g/dL (31-37) Red Cell Distribution Width 13.7 % (11.5-14.5) Platelet Count 358 x10^3/uL (140-400) Neutrophils (%) (Auto) 59 % (31-73) Lymphocytes (%) (Auto) 24 % (24-48) Monocytes (%) (Auto) 16 % (0-9) Eosinophils (%) (Auto) 1 % (0-3) Basophils (%) (Auto) 0 % (0-3) Neutrophils # (Auto) 4.6 x10^3/uL (1.8-7.7) Lymphocytes # (Auto) 1.9 x10^3/uL (1.0-4.8) Monocytes # (Auto) 1.2 x10^3/uL (0.0-1.1) Eosinophils # (Auto) 0.1 x10^3/uL (0.0-0.7) Basophils # (Auto) 0.0 x10^3/uL (0.0-0.2) Medications Active Scripts Medications Dose Route/Sig Max Daily Dose Days Date Category No Known Medications Prior To Admisstion (Info) Each 1 Each 1X 04/10/21 Reported Impression . IMPRESSION: 1. Abnormal x-ray, compatible with suspected COVID-19. 2. COVID-19 exposure. 3. Acute respiratory failure secondary to above. 4. Abnormal x-ray. 5. Negative testing for [id number] including rapid test and nucleic amplification test. CT angiogram IMPRESSION: 1. No evidence of pulmonary embolism. 2. Multifocal bilateral consolidative and groundglass opacities, highly suspicious for COVID 19 pneumonia. 3. Indeterminate 1.5 cm left adrenal nodule. With no personal history of primary malignancy, findings statistically representing benign adenoma. Consider further evaluation with dedicated CT adrenal protocol, as warranted. 4. Hepatic steatosis. Plan . Updated 04/12 CT revealed no evidence of pulmonary embolism Currently on 3 L PCR pending Possible discharge in the a.m., 10 6, 6-minute walk prior to PLAN: 1. We will continue empiric antibiotics. 2. Obtain PCR for COVID. 3. Continue isolation. 4. Oxygen supplementation. 5. Continue dexamethasone. 6. DVT prophylaxis. 7. Rule out PE. I do appreciate the privilege in sharing in this patient's care. LIYA ABDI MD Apr 12, 2021 08:49
[2021-04-12 09:43] LABS: ALBUMIN 2.5 g/dL (3.4-5.0); C-REACTIVE PROTEIN 28.6 mg/L (0-3.3); CALCIUM 8.5 mg/dL (8.5-10.1); CREATININE 0.9 mg/dL (0.6-1.0); DIRECT BILIRUBIN 0.3 mg/dL (0.0-0.2); GFR 63.2; POTASSIUM 3.7 mmol/L (3.5-5.1); TOTAL BILIRUBIN 0.8 mg/dL (0.2-1.0); TOTAL PROTEIN 6.5 g/dL (6.4-8.2)
--- NOTE | 2021-04-12 10:56 | PDOC ---
[employer] PROGRESS NOTE Date of Service DOS: DATE: 04/12/21 TIME: 10:54 Chief Complaint Chief Complaint A/P Acute respiratory failure hypoxia COVID-19 pneumonia vs CAP COVID-19 PUI Plan: Rapid COVID-19 was negative in the ED, however due to risk factors of positive exposure at home will treat empirically until COVID-19 PCR results; Covid PCR subsequently negative but due to high risk and close Covid contacts we will repeat Continue empiric antibiotics, Zosyn. Decadron 6 mg daily If Covid positive start remdesivir Provide supportive assisted meds resumed as indicated FEN - Cardiac diet PPX - Lovenox FULL CODE Dispo - inpatient for above Patient names her (Andi Miller) as surrogate decision-make History of Present Illness History of Present Illness Patient is a 61-year-old female with no stated past medical history presents to the ED with shortness of breath for the past week. She reports associated cough. Her is positive for COVID-19 at home, and patient states she has not been vaccinated against COVID-19. She reports associated nausea, vomiting, diarrhea, and loss of smell. Upon EMS arrival she was saturating 87% on room air. On arrival in the ED she was placed on 3 L nasal cannula with improvement in oxygen saturation. Labs on admission showed WBC 5.9, AST 50, ALT 62, BNP 257, albumin 2.7, troponin <0.017, and rapid COVID-19 was negative. Of note patient states she has 2 sons at home with similar exposure and negative rapid COVID-19 results. Chest x-ray showed peripherally distributed airspace disease at the mid and lower lung zones, suspicious for pneumonia or COVID-19 pneumonitis. She was treated with Zosyn and Decadron. Will admit patient for further medical management. 04/11 Patient evaluated at bedside on nasal cannula. She said her breathing was feeling quite a bit better already although not near her baseline. Interestingly Covid PCR negative despite close contact with PCR positive . Will ask pulmonary team the benefit of retesting. Otherwise continuing antibiotics and steroids. Plan of care discussed with bedside RN. 04/12 Patient evaluated at bedside says she is feeling well. Says her breathing is pretty well controlled but still requiring some oxygen. Repeat Covid pending. Continue antibiotics and steroids. Plan of care discussed with bedside RN. Vitals/I&O Vitals/I&O: Vital Signs Date Time Temp Pulse Resp B/P (MAP) Pulse Ox O2 Delivery O2 Flow Rate FiO2 04/12/21 08:00 Nasal Cannula 3.0 04/12/21 07:00 97.6 53 18 152/72 (98) 92 97.6 I & O 04/11/21 04/11/21 04/12/21 15:00 23:00 07:00 Intake Total 480 ml 540 ml 800 ml Balance 480 ml 540 ml 800 ml Physical Exam General: Alert, Oriented X3, Cooperative Heart: Regular rate, Normal S1, Normal S2 Lungs: Other (Coarse, decreased air entry) Abdomen: Normal bowel sounds, Soft, No tenderness Extremities: No edema, Normal pulses Skin: No significant lesion Labs Labs: Laboratory Tests Test 04/12/21 06:30 White Blood Count 7.7 x10^3/uL (4.0-11.0) Red Blood Count 4.37 x10^6/uL (3.50-5.40) Hemoglobin 12.9 g/dL (12.0-15.5) Hematocrit 37.5 % (36.0-47.0) Mean Corpuscular Volume 86 fL (79-100) Mean Corpuscular Hemoglobin 30 pg (25-35) Mean Corpuscular Hemoglobin Concent 34 g/dL (31-37) Red Cell Distribution Width 13.7 % (11.5-14.5) Platelet Count 358 x10^3/uL (140-400) Neutrophils (%) (Auto) 59 % (31-73) Lymphocytes (%) (Auto) 24 % (24-48) Monocytes (%) (Auto) 16 % (0-9) Eosinophils (%) (Auto) 1 % (0-3) Basophils (%) (Auto) 0 % (0-3) Neutrophils # (Auto) 4.6 x10^3/uL (1.8-7.7) Lymphocytes # (Auto) 1.9 x10^3/uL (1.0-4.8) Monocytes # (Auto) 1.2 x10^3/uL (0.0-1.1) Eosinophils # (Auto) 0.1 x10^3/uL (0.0-0.7) Basophils # (Auto) 0.0 x10^3/uL (0.0-0.2) Sodium Level 141 mmol/L (136-145) Potassium Level 3.7 mmol/L (3.5-5.1) Chloride Level 105 mmol/L (98-107) Carbon Dioxide Level 29 mmol/L (21-32) Anion Gap 7 (6-14) Blood Urea Nitrogen 16 mg/dL (7-20) Creatinine 0.9 mg/dL (0.6-1.0) Estimated GFR (Cockcroft-Gault) 63.2 Glucose Level 85 mg/dL (70-99) Calcium Level 8.5 mg/dL (8.5-10.1) Total Bilirubin 0.8 mg/dL (0.2-1.0) Direct Bilirubin 0.3 mg/dL (0.0-0.2) Aspartate Amino Transf (AST/SGOT) 51 U/L (15-37) Alanine Aminotransferase (ALT/SGPT) 62 U/L (14-59) Alkaline Phosphatase 68 U/L (46-116) C-Reactive Protein, Quantitative 28.6 mg/L (0-3.3) Total Protein 6.5 g/dL (6.4-8.2) Albumin 2.5 g/dL (3.4-5.0) Assessment and Plan Assessmemt and Plan Problems Medical Problems: (1) Hypoxia Status: Acute (2) Person under investigation for COVID-19 Status: Acute (3) Pneumonia Status: Acute Comment Review of Relevant I have reviewed the following items shandra (where applicable) has been applied. Medications: Current Medications Medications (Trade) Dose Ordered Sig/Jenna Route PRN Reason Start Time Stop Time Status Last Admin Dose Admin Doxycycline Hyclate (Vibra-Tab) 100 mg BID PO 04/11/21 13:00 04/12/21 08:36 Justifications for Admission General Conditions Other justification for admit: Acute respiratory failure, COVID-19 PUI Other Justification PRATIMA MOON MD Apr 12, 2021 10:55
[2021-04-12 11:00] VITALS: BP 150/70
[2021-04-12 15:00] VITALS: BP 155/77
[2021-04-12 19:00] VITALS: BP 151/76
[2021-04-12] MEDS: HYDROcodone/APAP 5/325MG 1 TAB TABLET PO PRN (20:33)
[2021-04-12 23:44] VITALS: BP 143/71
[2021-04-13 03:00] VITALS: BP 150/74
[2021-04-13 07:00] VITALS: BP 152/70
[2021-04-13] MEDS: DOXYCYCLINE HYCLATE 100 MG TABLET PO SCH ×2 (08:45→20:29)
[2021-04-13] MEDS: ENOXAPARIN 40 MG/0.4 ML SYRINGE. SQ SCH (08:45)
[2021-04-13] MEDS: DEXAMETHASONE SOD PHOS 4 MG/ML VIAL IVP SCH (08:45)
[2021-04-13] MEDS: ZINC SULFATE 220 MG CAPSULE. PO SCH (08:45)
[2021-04-13] MEDS: LACTOBACILLUS RHAMNOSUS GG 1 CAPSULE. PO SCH ×2 (08:45→20:29)
[2021-04-13] MEDS: ASCORBIC ACID 500 MG TABLET PO SCH ×2 (08:45→20:29)
--- NOTE | 2021-04-13 08:51 | PDOC ---
PULMONARY PROGRESS NOTES DATE: 04/13/21 TIME: 08:50 Subjective Patient feels no worse no increasing shortness of breath Vitals Vital Signs Date Time Temp Pulse Resp B/P (MAP) Pulse Ox O2 Delivery O2 Flow Rate FiO2 04/13/21 03:00 97.4 58 18 150/74 (99) 96 Nasal Cannula 3.0 97.4 ROS: No Nausea, No Chest Pain, No Abdominal Pain, No Increase Cough General: Alert Lungs: Crackles Cardiovascular: S1, S2 Abdomen: Soft Neuro Exam: Alert Extremities: No Edema Skin: Warm Labs Laboratory Tests Test 04/12/21 06:30 White Blood Count 7.7 x10^3/uL (4.0-11.0) Red Blood Count 4.37 x10^6/uL (3.50-5.40) Hemoglobin 12.9 g/dL (12.0-15.5) Hematocrit 37.5 % (36.0-47.0) Mean Corpuscular Volume 86 fL (79-100) Mean Corpuscular Hemoglobin 30 pg (25-35) Mean Corpuscular Hemoglobin Concent 34 g/dL (31-37) Red Cell Distribution Width 13.7 % (11.5-14.5) Platelet Count 358 x10^3/uL (140-400) Neutrophils (%) (Auto) 59 % (31-73) Lymphocytes (%) (Auto) 24 % (24-48) Monocytes (%) (Auto) 16 % (0-9) Eosinophils (%) (Auto) 1 % (0-3) Basophils (%) (Auto) 0 % (0-3) Neutrophils # (Auto) 4.6 x10^3/uL (1.8-7.7) Lymphocytes # (Auto) 1.9 x10^3/uL (1.0-4.8) Monocytes # (Auto) 1.2 x10^3/uL (0.0-1.1) Eosinophils # (Auto) 0.1 x10^3/uL (0.0-0.7) Basophils # (Auto) 0.0 x10^3/uL (0.0-0.2) Sodium Level 141 mmol/L (136-145) Potassium Level 3.7 mmol/L (3.5-5.1) Chloride Level 105 mmol/L (98-107) Carbon Dioxide Level 29 mmol/L (21-32) Anion Gap 7 (6-14) Blood Urea Nitrogen 16 mg/dL (7-20) Creatinine 0.9 mg/dL (0.6-1.0) Estimated GFR (Cockcroft-Gault) 63.2 Glucose Level 85 mg/dL (70-99) Calcium Level 8.5 mg/dL (8.5-10.1) Total Bilirubin 0.8 mg/dL (0.2-1.0) Direct Bilirubin 0.3 mg/dL (0.0-0.2) Aspartate Amino Transf (AST/SGOT) 51 U/L (15-37) Alanine Aminotransferase (ALT/SGPT) 62 U/L (14-59) Alkaline Phosphatase 68 U/L (46-116) C-Reactive Protein, Quantitative 28.6 mg/L (0-3.3) Total Protein 6.5 g/dL (6.4-8.2) Albumin 2.5 g/dL (3.4-5.0) Medications Active Scripts Medications Dose Route/Sig Max Daily Dose Days Date Category No Known Medications Prior To Admisstion (Info) Each 1 Each 1X 04/10/21 Reported Impression . IMPRESSION: 1. Abnormal x-ray, compatible with suspected COVID-19. 2. COVID-19 exposure. 3. Acute respiratory failure secondary to above. 4. Abnormal x-ray. 5. Negative testing for [id number] including rapid test and nucleic amplification test. CT angiogram IMPRESSION: 1. No evidence of pulmonary embolism. 2. Multifocal bilateral consolidative and groundglass opacities, highly suspicious for COVID 19 pneumonia. 3. Indeterminate 1.5 cm left adrenal nodule. With no personal history of primary malignancy, findings statistically representing benign adenoma. Consider further evaluation with dedicated CT adrenal protocol, as warranted. 4. Hepatic steatosis. Plan . Updated 04/13 Discussed with RN, follow-up on PCR results Continue oxygen supplementation Continue current support Once we get PCR results back, discharge patient home with oxygen updated 04/12 CT revealed no evidence of pulmonary embolism Currently on 3 L PCR pending Possible discharge in the a.m., 10 6, 6-minute walk prior to PLAN: 1. We will continue empiric antibiotics. 2. Obtain PCR for COVID. 3. Continue isolation. 4. Oxygen supplementation. 5. Continue dexamethasone. 6. DVT prophylaxis. 7. Rule out PE. I do appreciate the privilege in sharing in this patient's care. LIYA ABDI MD Apr 13, 2021 08:51
[2021-04-13 11:00] VITALS: BP 158/75
[2021-04-13 11:08] LABS: BASO % 0 % (0-3); EOS # 0.1 x10^3/uL (0.0-0.7); EOS % 2 % (0-3); HEMATOCRIT 36.8 % (36.0-47.0); HEMOGLOBIN 12.8 g/dL (12.0-15.5); LYMPH # 1.5 x10^3/uL (1.0-4.8); LYMPH % 18 % (24-48); MEAN CORPUSCULAR HEMOGLOBIN 30 pg (25-35); MEAN CORPUSCULAR HGB CONC 35 g/dL (31-37); MEAN CORPUSCULAR VOLUME 85 fL (79-100); MONO # 1.1 x10^3/uL (0.0-1.1); MONO % 13 % (0-9); NEUT # 5.6 x10^3/uL (1.8-7.7); NEUT % 67 % (31-73); PLATELET COUNT 379 x10^3/uL (140-400); RED BLOOD COUNT 4.33 x10^6/uL (3.50-5.40); RED CELL DISTRIBUTION WIDTH 13.6 % (11.5-14.5); WHITE BLOOD COUNT 8.3 x10^3/uL (4.0-11.0)
[2021-04-13 11:27] LABS: ALBUMIN 2.4 g/dL (3.4-5.0); CREATININE 0.9 mg/dL (0.6-1.0); DIRECT BILIRUBIN 0.3 mg/dL (0.0-0.2); GFR 63.2; POTASSIUM 3.3 mmol/L (3.5-5.1); TOTAL BILIRUBIN 0.7 mg/dL (0.2-1.0); TOTAL PROTEIN 6.4 g/dL (6.4-8.2)
[2021-04-13 13:51] LABS: INFLUENZA A PATIENT NEGATIVE (NEGATIVE); INFLUENZA B PATIENT NEGATIVE (NEGATIVE)
[2021-04-13 15:00] VITALS: BP 154/74
--- NOTE | 2021-04-13 16:47 | PDOC ---
[facility] [facility] PROGRESS NOTE Date of Service DOS: DATE: 04/13/21 TIME: 16:46 Chief Complaint Chief Complaint A/P Acute respiratory failure hypoxia COVID-19 pneumonia vs CAP COVID-19 PUI Plan: Rapid COVID-19 was negative in the ED, however due to risk factors of positive exposure at home will treat empirically until COVID-19 PCR results; Covid PCR subsequently negative but due to high risk and close Covid contacts we will repeat Continue empiric antibiotics, Zosyn. Decadron 6 mg daily If Covid positive start remdesivir Provide supportive FPC meds resumed as indicated FEN - Cardiac diet PPX - Lovenox FULL CODE Dispo - inpatient for above Patient names her (Andi Miller) as surrogate decision-make History of Present Illness History of Present Illness Patient is a 61-year-old female with no stated past medical history presents to the ED with shortness of breath for the past week. She reports associated cough. Her is positive for COVID-19 at home, and patient states she has not been vaccinated against COVID-19. She reports associated nausea, vomiting, diarrhea, and loss of smell. Upon EMS arrival she was saturating 87% on room air. On arrival in the ED she was placed on 3 L nasal cannula with improvement in oxygen saturation. Labs on admission showed WBC 5.9, AST 50, ALT 62, BNP 257, albumin 2.7, troponin <0.017, and rapid COVID-19 was negative. Of note patient states she has 2 sons at home with similar exposure and negative rapid COVID-19 results. Chest x-ray showed peripherally distributed airspace disease at the mid and lower lung zones, suspicious for pneumonia or COVID-19 pneumonitis. She was treated with Zosyn and Decadron. Will admit patient for further medical management. 04/11 Patient evaluated at bedside on nasal cannula. She said her breathing was feeling quite a bit better already although not near her baseline. Interestingly Covid PCR negative despite close contact with PCR positive . Will ask pulmonary team the benefit of retesting. Otherwise continuing antibiotics and steroids. Plan of care discussed with bedside RN. 04/12 Patient evaluated at bedside says she is feeling well. Says her breathing is pretty well controlled but still requiring some oxygen. Repeat Covid pending. Continue antibiotics and steroids. Plan of care discussed with bedside RN. 04/13/2021 No acute events overnight. Patient seen and examined bedside. Saturating 96% on 3 L nasal cannula. Patient may require some oxygen upon discharge. Currently repeating Covid testing as both rapid and PCR was negative. Patient's chart, labs, images were reviewed and discussed with RN Vitals/I&O Vitals/I&O: Vital Signs Date Time Temp Pulse Resp B/P (MAP) Pulse Ox O2 Delivery O2 Flow Rate FiO2 04/13/21 15:00 98.1 66 18 154/74 (100) 92 Nasal Cannula 3.0 98.1 I & O 04/12/21 04/12/21 04/13/21 15:00 23:00 07:00 Intake Total 440 ml 750 ml 120 ml Output Total 1 ml Balance 440 ml 750 ml 119 ml Physical Exam General: Alert, Oriented X3, Cooperative Heart: Regular rate, Normal S1, Normal S2 Lungs: Crackles Abdomen: Normal bowel sounds, Soft, No tenderness Extremities: No edema, Normal pulses Skin: No significant lesion Labs Labs: Laboratory Tests Test 04/13/21 10:20 04/13/21 13:12 White Blood Count 8.3 x10^3/uL (4.0-11.0) Red Blood Count 4.33 x10^6/uL (3.50-5.40) Hemoglobin 12.8 g/dL (12.0-15.5) Hematocrit 36.8 % (36.0-47.0) Mean Corpuscular Volume 85 fL (79-100) Mean Corpuscular Hemoglobin 30 pg (25-35) Mean Corpuscular Hemoglobin Concent 35 g/dL (31-37) Red Cell Distribution Width 13.6 % (11.5-14.5) Platelet Count 379 x10^3/uL (140-400) Neutrophils (%) (Auto) 67 % (31-73) Lymphocytes (%) (Auto) 18 % (24-48) Monocytes (%) (Auto) 13 % (0-9) Eosinophils (%) (Auto) 2 % (0-3) Basophils (%) (Auto) 0 % (0-3) Neutrophils # (Auto) 5.6 x10^3/uL (1.8-7.7) Lymphocytes # (Auto) 1.5 x10^3/uL (1.0-4.8) Monocytes # (Auto) 1.1 x10^3/uL (0.0-1.1) Eosinophils # (Auto) 0.1 x10^3/uL (0.0-0.7) Basophils # (Auto) 0.0 x10^3/uL (0.0-0.2) Sodium Level 141 mmol/L (136-145) Potassium Level 3.3 mmol/L (3.5-5.1) Chloride Level 105 mmol/L (98-107) Carbon Dioxide Level 25 mmol/L (21-32) Anion Gap 11 (6-14) Blood Urea Nitrogen 16 mg/dL (7-20) Creatinine 0.9 mg/dL (0.6-1.0) Estimated GFR (Cockcroft-Gault) 63.2 Glucose Level 154 mg/dL (70-99) Calcium Level 8.0 mg/dL (8.5-10.1) Total Bilirubin 0.7 mg/dL (0.2-1.0) Direct Bilirubin 0.3 mg/dL (0.0-0.2) Aspartate Amino Transf (AST/SGOT) 49 U/L (15-37) Alanine Aminotransferase (ALT/SGPT) 61 U/L (14-59) Alkaline Phosphatase 72 U/L (46-116) Total Protein 6.4 g/dL (6.4-8.2) Albumin 2.4 g/dL (3.4-5.0) Influenza Type A Antigen Negative (NEGATIVE) Influenza Type B Antigen Negative (NEGATIVE) Assessment and Plan Assessmemt and Plan Problems Medical Problems: (1) Hypoxia Status: Acute (2) Person under investigation for COVID-19 Status: Acute (3) Pneumonia Status: Acute Comment Review of Relevant I have reviewed the following items shandra (where applicable) has been applied. Justifications for Admission General Conditions Other justification for admit: Acute respiratory failure, COVID-19 PUI Other Justification ARELY REEVES MD Apr 13, 2021 16:46
[2021-04-13 19:00] VITALS: BP 156/76
[2021-04-13 23:13] VITALS: BP 151/70
[2021-04-14 03:25] VITALS: BP 143/70
[2021-04-14 07:00] VITALS: BP 144/72
[2021-04-14 07:25] LABS: BASO % 0 % (0-3); EOS # 0.2 x10^3/uL (0.0-0.7); EOS % 2 % (0-3); HEMATOCRIT 39.8 % (36.0-47.0); HEMOGLOBIN 13.3 g/dL (12.0-15.5); LYMPH # 2.7 x10^3/uL (1.0-4.8); LYMPH % 29 % (24-48); MEAN CORPUSCULAR HEMOGLOBIN 29 pg (25-35); MEAN CORPUSCULAR HGB CONC 33 g/dL (31-37); MEAN CORPUSCULAR VOLUME 86 fL (79-100); MONO # 1.1 x10^3/uL (0.0-1.1); MONO % 12 % (0-9); NEUT # 5.2 x10^3/uL (1.8-7.7); NEUT % 57 % (31-73); PLATELET COUNT 413 x10^3/uL (140-400); RED BLOOD COUNT 4.65 x10^6/uL (3.50-5.40); RED CELL DISTRIBUTION WIDTH 13.8 % (11.5-14.5); WHITE BLOOD COUNT 9.2 x10^3/uL (4.0-11.0)
[2021-04-14] MEDS: DEXAMETHASONE SOD PHOS 4 MG/ML VIAL IVP SCH (08:25)
[2021-04-14] MEDS: ASCORBIC ACID 500 MG TABLET PO SCH (08:25)
[2021-04-14] MEDS: ENOXAPARIN 40 MG/0.4 ML SYRINGE. SQ SCH (08:25)
[2021-04-14] MEDS: ZINC SULFATE 220 MG CAPSULE. PO SCH (08:25)
[2021-04-14] MEDS: LACTOBACILLUS RHAMNOSUS GG 1 CAPSULE. PO SCH (08:26)
[2021-04-14] MEDS: DOXYCYCLINE HYCLATE 100 MG TABLET PO SCH (08:26)
[2021-04-14 08:39] LABS: ALBUMIN 2.5 g/dL (3.4-5.0); CALCIUM 8.6 mg/dL (8.5-10.1); CREATININE 0.8 mg/dL (0.6-1.0); DIRECT BILIRUBIN 0.2 mg/dL (0.0-0.2); GFR 72.4; POTASSIUM 3.6 mmol/L (3.5-5.1); TOTAL BILIRUBIN 0.7 mg/dL (0.2-1.0); TOTAL PROTEIN 6.6 g/dL (6.4-8.2)
--- NOTE | 2021-04-14 08:42 | PDOC ---
PULMONARY PROGRESS NOTES DATE: 04/14/21 TIME: 08:42 Subjective Patient feels better and no chest pain no pressure no increasing shortness of Vitals Vital Signs Date Time Temp Pulse Resp B/P (MAP) Pulse Ox O2 Delivery O2 Flow Rate FiO2 04/14/21 03:25 98.3 53 143/70 (94) 97 Nasal Cannula 3.0 98.3 04/13/21 23:13 18 ROS: No Nausea, No Chest Pain, No Abdominal Pain, No Increase Cough General: Alert Lungs: Crackles Cardiovascular: S1, S2 Abdomen: Soft Neuro Exam: Alert Extremities: No Edema Skin: Warm Labs Laboratory Tests Test 04/13/21 10:20 04/13/21 13:12 04/14/21 06:50 White Blood Count 8.3 x10^3/uL (4.0-11.0) 9.2 x10^3/uL (4.0-11.0) Red Blood Count 4.33 x10^6/uL (3.50-5.40) 4.65 x10^6/uL (3.50-5.40) Hemoglobin 12.8 g/dL (12.0-15.5) 13.3 g/dL (12.0-15.5) Hematocrit 36.8 % (36.0-47.0) 39.8 % (36.0-47.0) Mean Corpuscular Volume 85 fL (79-100) 86 fL (79-100) Mean Corpuscular Hemoglobin 30 pg (25-35) 29 pg (25-35) Mean Corpuscular Hemoglobin Concent 35 g/dL (31-37) 33 g/dL (31-37) Red Cell Distribution Width 13.6 % (11.5-14.5) 13.8 % (11.5-14.5) Platelet Count 379 x10^3/uL (140-400) 413 x10^3/uL (140-400) Neutrophils (%) (Auto) 67 % (31-73) 57 % (31-73) Lymphocytes (%) (Auto) 18 % (24-48) 29 % (24-48) Monocytes (%) (Auto) 13 % (0-9) 12 % (0-9) Eosinophils (%) (Auto) 2 % (0-3) 2 % (0-3) Basophils (%) (Auto) 0 % (0-3) 0 % (0-3) Neutrophils # (Auto) 5.6 x10^3/uL (1.8-7.7) 5.2 x10^3/uL (1.8-7.7) Lymphocytes # (Auto) 1.5 x10^3/uL (1.0-4.8) 2.7 x10^3/uL (1.0-4.8) Monocytes # (Auto) 1.1 x10^3/uL (0.0-1.1) 1.1 x10^3/uL (0.0-1.1) Eosinophils # (Auto) 0.1 x10^3/uL (0.0-0.7) 0.2 x10^3/uL (0.0-0.7) Basophils # (Auto) 0.0 x10^3/uL (0.0-0.2) 0.0 x10^3/uL (0.0-0.2) Sodium Level 141 mmol/L (136-145) 140 mmol/L (136-145) Potassium Level 3.3 mmol/L (3.5-5.1) 3.6 mmol/L (3.5-5.1) Chloride Level 105 mmol/L (98-107) 104 mmol/L (98-107) Carbon Dioxide Level 25 mmol/L (21-32) 25 mmol/L (21-32) Anion Gap 11 (6-14) 11 (6-14) Blood Urea Nitrogen 16 mg/dL (7-20) 17 mg/dL (7-20) Creatinine 0.9 mg/dL (0.6-1.0) 0.8 mg/dL (0.6-1.0) Estimated GFR (Cockcroft-Gault) 63.2 72.4 Glucose Level 154 mg/dL (70-99) 144 mg/dL (70-99) Calcium Level 8.0 mg/dL (8.5-10.1) 8.6 mg/dL (8.5-10.1) Total Bilirubin 0.7 mg/dL (0.2-1.0) 0.7 mg/dL (0.2-1.0) Direct Bilirubin 0.3 mg/dL (0.0-0.2) 0.2 mg/dL (0.0-0.2) Aspartate Amino Transf (AST/SGOT) 49 U/L (15-37) 35 U/L (15-37) Alanine Aminotransferase (ALT/SGPT) 61 U/L (14-59) 67 U/L (14-59) Alkaline Phosphatase 72 U/L (46-116) 79 U/L (46-116) Total Protein 6.4 g/dL (6.4-8.2) 6.6 g/dL (6.4-8.2) Albumin 2.4 g/dL (3.4-5.0) 2.5 g/dL (3.4-5.0) Coronavirus (COVID-19)(PCR) Positive (NOT DETECTD) Influenza Type A Antigen Negative (NEGATIVE) Influenza Type B Antigen Negative (NEGATIVE) Laboratory Tests Test 04/13/21 10:20 04/13/21 13:12 04/14/21 06:50 White Blood Count 8.3 x10^3/uL (4.0-11.0) 9.2 x10^3/uL (4.0-11.0) Red Blood Count 4.33 x10^6/uL (3.50-5.40) 4.65 x10^6/uL (3.50-5.40) Hemoglobin 12.8 g/dL (12.0-15.5) 13.3 g/dL (12.0-15.5) Hematocrit 36.8 % (36.0-47.0) 39.8 % (36.0-47.0) Mean Corpuscular Volume 85 fL (79-100) 86 fL (79-100) Mean Corpuscular Hemoglobin 30 pg (25-35) 29 pg (25-35) Mean Corpuscular Hemoglobin Concent 35 g/dL (31-37) 33 g/dL (31-37) Red Cell Distribution Width 13.6 % (11.5-14.5) 13.8 % (11.5-14.5) Platelet Count 379 x10^3/uL (140-400) 413 x10^3/uL (140-400) Neutrophils (%) (Auto) 67 % (31-73) 57 % (31-73) Lymphocytes (%) (Auto) 18 % (24-48) 29 % (24-48) Monocytes (%) (Auto) 13 % (0-9) 12 % (0-9) Eosinophils (%) (Auto) 2 % (0-3) 2 % (0-3) Basophils (%) (Auto) 0 % (0-3) 0 % (0-3) Neutrophils # (Auto) 5.6 x10^3/uL (1.8-7.7) 5.2 x10^3/uL (1.8-7.7) Lymphocytes # (Auto) 1.5 x10^3/uL (1.0-4.8) 2.7 x10^3/uL (1.0-4.8) Monocytes # (Auto) 1.1 x10^3/uL (0.0-1.1) 1.1 x10^3/uL (0.0-1.1) Eosinophils # (Auto) 0.1 x10^3/uL (0.0-0.7) 0.2 x10^3/uL (0.0-0.7) Basophils # (Auto) 0.0 x10^3/uL (0.0-0.2) 0.0 x10^3/uL (0.0-0.2) Sodium Level 141 mmol/L (136-145) 140 mmol/L (136-145) Potassium Level 3.3 mmol/L (3.5-5.1) 3.6 mmol/L (3.5-5.1) Chloride Level 105 mmol/L (98-107) 104 mmol/L (98-107) Carbon Dioxide Level 25 mmol/L (21-32) 25 mmol/L (21-32) Anion Gap 11 (6-14) 11 (6-14) Blood Urea Nitrogen 16 mg/dL (7-20) 17 mg/dL (7-20) Creatinine 0.9 mg/dL (0.6-1.0) 0.8 mg/dL (0.6-1.0) Estimated GFR (Cockcroft-Gault) 63.2 72.4 Glucose Level 154 mg/dL (70-99) 144 mg/dL (70-99) Calcium Level 8.0 mg/dL (8.5-10.1) 8.6 mg/dL (8.5-10.1) Total Bilirubin 0.7 mg/dL (0.2-1.0) 0.7 mg/dL (0.2-1.0) Direct Bilirubin 0.3 mg/dL (0.0-0.2) 0.2 mg/dL (0.0-0.2) Aspartate Amino Transf (AST/SGOT) 49 U/L (15-37) 35 U/L (15-37) Alanine Aminotransferase (ALT/SGPT) 61 U/L (14-59) 67 U/L (14-59) Alkaline Phosphatase 72 U/L (46-116) 79 U/L (46-116) Total Protein 6.4 g/dL (6.4-8.2) 6.6 g/dL (6.4-8.2) Albumin 2.4 g/dL (3.4-5.0) 2.5 g/dL (3.4-5.0) Coronavirus (COVID-19)(PCR) Positive (NOT DETECTD) Influenza Type A Antigen Negative (NEGATIVE) Influenza Type B Antigen Negative (NEGATIVE) Medications Active Scripts Medications Dose Route/Sig Max Daily Dose Days Date Category No Known Medications Prior To Admisstion (Info) Each 1 Each 1X 04/10/21 Reported Impression . IMPRESSION: 1. Abnormal x-ray, COVID-19 viral pneumonia 2. COVID-19 exposure. PCR positive 3. Acute respiratory failure secondary to above. 4. Abnormal x-ray. 5. Negative testing for [id number] including rapid test and nucleic amplification test. PCR positive CT angiogram IMPRESSION: 1. No evidence of pulmonary embolism. 2. Multifocal bilateral consolidative and groundglass opacities, highly suspicious for COVID 19 pneumonia. 3. Indeterminate 1.5 cm left adrenal nodule. With no personal history of primary malignancy, findings statistically representing benign adenoma. Consider further evaluation with dedicated CT adrenal protocol, as warranted. 4. Hepatic steatosis. Plan . Updated 04/14 PCR positive Patient to discharge home today after a 6-minute walk Follow-up in my office in June Discussed with RN and RT Updated 04/13 Discussed with RN, follow-up on PCR results Continue oxygen supplementation Continue current support Once we get PCR results back, discharge patient home with oxygen updated 04/12 CT revealed no evidence of pulmonary embolism Currently on 3 L PCR pending Possible discharge in the a.m., 10 6, 6-minute walk prior to LIYA ABDI MD Apr 14, 2021 08:42
[2021-04-14 11:00] VITALS: BP 152/76
[2021-04-14] MEDS ORDERED: PRED20TA PO (11:18)
--- NOTE | 2021-04-14 11:20 | DISCH ---
DISCHARGE INSTRUCTIONS Condition on Discharge Condition on Discharge: Stable Activity After Discharge Activity Instructions for Disc: Activity as tolerated Exercise Instruction after Dis: Walk 15 min, 3 x per day Driving Instructions after Dis: Do not drive today Diet after Discharge Diet after Discharge: Cardiac Follow-Up Follow up with: PCP within 2 weeks of discharge Follow Up With: Pulmonology as needed Treatment/Equipment after DC Discharge Respiratory Equipmen: Oxygen (Purchase a pulse oximeter at home and maintain O2 saturation greater than 90%) ARELY REEVES MD Apr 14, 2021 11:20
== END 2021-04-14 15:20 | disposition home or self-care (01) | DRG 177 ==
LOC: ER 01:09 → 5 SOUTH 03:12
PROVIDERS: ADMIT Internal Medicine; ATTEND Internal Medicine
DX: U07.1 COVID-19 (principal); J96.01 Acute respiratory failure with hypoxia; J12.82 Pneumonia due to coronavirus disease 2019; Z83.3 Family history of diabetes mellitus; Z98.51 Tubal ligation status; K76.0 Fatty (change of) liver, not elsewhere classified; E27.8 Other specified disorders of adrenal gland
CPT/HCPCS: 36415; 71045; 71275; 80048; 80053; 80076; 82728; 83036; 83605; 83615; 83735; 83880; 84484; 85025; 85379; 86140; 87426; 87804; 93005; 94618; J1100; J1650; J2543; J7030; U0003; U0005; 99285-25; G0378